=== PATIENT | male | born 1955 | race Caucasian/White ===

== ENCOUNTER 2025-05-20 06:28 | Inpatient (IN) | payer MEDICARE ==
[2025-05-18 14:34] LABS: BASOPHILS % 0.4 % (0.0-1.0); EOSINOPHILS % 1.9 % (0.0-6.0); LYMPHOCYTES % 13.9 % (18.0-39.1); MONOCYTES % 5.7 % (4.4-11.3); NEUTROPHILS % 77.9 % (38.7-80.0); RED CELL DISTRIBUTION WIDTH 13.7 % (11.7-14.4)
[2025-05-18 15:05] LABS: INR 1.07
[2025-05-18 15:11] LABS: EST GLOMERULAR FILTRATION RATE 6.0 ML/MIN (>=60)
[~2025-05-20] VITALS: Ht 175.3 cm; Wt 88.5 kg
[~2025-05-20 06:28] MED LIST: CALCIUM ACETAT667 MG PO; CLONIDINE HCL0.1 MG PO; CRESTOR40 MG PO; HYDRALAZINE HCL25 MG PO; ISOSORBIDE DINI30 MG PO; LASIX40 MG PO; METOPROLOL SUCC50 MG PO; PLAVIX75 MG PO; SENSIPAR30 MG PO; STOOL SOFTENER50 MG
[2025-05-20] MEDS ORDERED: DOCUSATE SODIUM 100 MG CAP PO PRN (07:00)
[2025-05-20] MEDS ORDERED: LIDOCAINE HCL 2% LOCAL INJ 5 ML SDV VIAL INJ ONE (07:26)
[2025-05-20] MEDS ORDERED: SEVOFLURANE INHAL SOLN 250 ML PEN BTL ONE (07:27)
[2025-05-20] MEDS ORDERED: ROCURONIUM BROMIDE 0 ML IV ONE (07:27)
[2025-05-20] MEDS ORDERED: PROPOFOL IV EMULSION 10 MG/ML 20 ML VIAL ONE ×2 (07:27→09:49)
[2025-05-20] MEDS ORDERED: SODIUM CHLORIDE 0.9% 100 ML ONE (07:27)
[2025-05-20] MEDS ORDERED: ACETAMINOPHEN 1000 MG/100 ML 100 ML IV ONE (07:27)
[2025-05-20] MEDS ORDERED: PHENYLEPHRINE HCL 1% 10 MG/ML VIAL ONE (07:27)
[2025-05-20] MEDS ORDERED: FENTANYL CITRATE/PF 100MCG/2 ML INJ ONE (07:27)
[2025-05-20] MEDS ORDERED: ROPIVACAINE/EPI/CLONIDINE/KET 50 ML SYRINGE INJ ONE (08:00)
[2025-05-20] MEDS ORDERED: PROPOFOL IV EMULSION 50 ML IV ONE (08:26)
[2025-05-20] MEDS ORDERED: DEXAMETHASONE SOD PHOS INJ 4 MG/ML SDV ONE (08:46)
[2025-05-20] MEDS ORDERED: SIMETHICONE 80 MG CHEW PO PRN (15:00)
[2025-05-20] MEDS ORDERED: DIPHENHYDRAMINE HCL 25 MG CAP PO PRN (15:00)
[2025-05-20] MEDS ORDERED: LIDOCAINE 4% PATCH TP PRN (15:00)
[2025-05-20] MEDS ORDERED: CHLORASEPTIC SPRAY 177 ML BTL MM PRN (15:00)
[2025-05-20] MEDS ORDERED: POTASSIUM CHLORIDE 20 MEQ TAB CR PO PRN (15:00)
[2025-05-20] MEDS ORDERED: BENZONATATE 100 MG CAP PO PRN (15:00)
[2025-05-20] MEDS ORDERED: DEXTROSE 50% SYRINGE 50 ML IV PRN (15:00)
[2025-05-20] MEDS ORDERED: ALBUTEROL/IPRATROPIUM 3 ML NEB NEB PRN (15:00)
[2025-05-20 16:05] VITALS: BP 185/95; PULSE 62; RESP 20; TEMP 97.3; O2SAT 97
[2025-05-20] MEDS ORDERED: ASPIRIN 325 MG TAB ONE (16:16)
[2025-05-20] MEDS: ASPIRIN 81 MG CHEW TAB PO SCH (16:40)
[2025-05-20] MEDS: METOPROLOL SUCCINATE 50 MG TAB XL PO SCH (16:40)
[2025-05-20] MEDS: HYDRALAZINE HCL 25 MG TAB PO SCH (16:41)
[2025-05-20] MEDS: SODIUM CHLORIDE 0.9% 250ML 250 ML ONE (16:42)
[2025-05-20] MEDS ORDERED: ENOXAPARIN SOD INJ 40 MG/0.4 ML SYR SC SCH (17:00)
[2025-05-20] MEDS: GENTAMICIN SULFATE 15 GM CR TP SCH (19:00)
[2025-05-20] MEDS ORDERED: Morphine 2mg Syringe 2 MG/ML SYR IV PRN (19:45)
[2025-05-20] MEDS ORDERED: TRAMADOL HCL 50 MG TAB PO PRN ×2 (19:45)
[2025-05-20 20:00] VITALS: BP 138/88; PULSE 78; RESP 18; TEMP 97.3; O2SAT 100
[2025-05-20 20:03] VITALS: PULSE 77; RESP 17; O2SAT 98
[2025-05-20] MEDS: TRAMADOL HCL 50 MG TAB PO PRN (20:40)
[2025-05-20] MEDS: MELATONIN 5 MG TABLET PO PRN (20:40)
[2025-05-20] MEDS: HEPARIN SOD (PORCINE) 5,000 UNIT/ML VIAL SC SCH (20:40)
[2025-05-20 21:00] VITALS: BP 138/88; PULSE 77; RESP 17; TEMP 97.3; O2SAT 98
[2025-05-21] VITALS (11 sets, daily range): BP systolic 126–143; BP diastolic 78–92; PULSE 53–83; RESP 17–20; TEMP 97.6–98.8; O2SAT 96–100
[2025-05-21 07:03] LABS: EST GLOMERULAR FILTRATION RATE 6.0 ML/MIN (>=60)
[2025-05-21] MEDS: CALCIUM ACETATE 667 MG GELCAP PO SCH (08:55)
[2025-05-21] MEDS: CRESTOR 10MG PO SCH (08:56)
[2025-05-21] MEDS: CLOPIDOGREL BISULFATE 75 MG TAB PO SCH (08:57)
[2025-05-21] MEDS: PANTOPRAZOLE SOD 40 MG TABEC PO SCH (08:57)
[2025-05-21] MEDS: FUROSEMIDE 40 MG TAB PO SCH (08:57)
[2025-05-21] MEDS: CINACALCET 30 MG TAB PO SCH (08:57)
[2025-05-21] MEDS: CALCIUM GLUC 1 G/50 ML NACL 50 ML IV ONE ×2 (09:00→10:12)
[2025-05-21] MEDS: ONDANSETRON HCL INJ 2MG/ML 2ML 2 MG/ML VIAL IV PRN (11:07)
[2025-05-21] MEDS: ACETAMINOPHEN 325 MG TAB PO PRN (14:51)
[2025-05-21] MEDS ORDERED: HEPARIN SOD (PORCINE) 1000 UNIT/ML SDV IV PRN (15:45)
[2025-05-21] MEDS ORDERED: SODIUM CHLORIDE 0.9% 1000ML 2,000 ML IV PRN (15:45)
[2025-05-21] MEDS: SODIUM CHLORIDE 0.9% 250ML 250 ML IV ONE (18:07)
[2025-05-21] MEDS: EPOETIN ALFA-EPBX 10,000 UNIT/ML VIAL SC SCH (18:07)
[2025-05-21] MEDS: SODIUM CHLORIDE 0.9% 500ML 500 ML ONE (18:34)
[2025-05-21] MEDS: CEFAZOLIN SODIUM 2 GM ONE (18:34)
[2025-05-21] MEDS: CALCIUM CARBONATE 500 MG CHEWABLE TABS PO SCH (21:03)
[2025-05-21] MEDS ORDERED: SODIUM CHLORIDE 0.9% 250ML 250 ML ONE (22:24)
[2025-05-22] VITALS (9 sets, daily range): BP systolic 130–161; BP diastolic 67–104; PULSE 69–87; RESP 18–21; TEMP 97.6–98.3; O2SAT 95–100
[2025-05-22] MEDS: SODIUM CHLORIDE 0.9% 250ML 250 ML IV ONE (00:03)
[2025-05-22] MEDS: HYDRALAZINE HCL 20 MG/ML VIAL IV PRN (00:07)
[2025-05-22 06:54] LABS: BASOPHILS % 0.4 % (0.0-1.0); EOSINOPHILS % 1.2 % (0.0-6.0); LYMPHOCYTES % 17.3 % (18.0-39.1); MONOCYTES % 7.9 % (4.4-11.3); NEUTROPHILS % 72.6 % (38.7-80.0); RED CELL DISTRIBUTION WIDTH 17.0 % (11.7-14.4)
[2025-05-22 07:36] LABS: EST GLOMERULAR FILTRATION RATE 7.0 ML/MIN (>=60)
[2025-05-22] MEDS ORDERED: METOCLOPRAMIDE HCL 10 MG/2ML VIAL IV SCH (18:00)
[2025-05-22] MEDS: METOCLOPRAMIDE HCL 10 MG/2ML VIAL IV SCH (18:43)
[2025-05-23 03:24] VITALS: BP 130/67; PULSE 75; RESP 18; TEMP 97.6; O2SAT 98
[2025-05-23 05:37] LABS: BASOPHILS % 0.4 % (0.0-1.0); EOSINOPHILS % 1.9 % (0.0-6.0); LYMPHOCYTES % 16.3 % (18.0-39.1); MONOCYTES % 7.9 % (4.4-11.3); NEUTROPHILS % 72.7 % (38.7-80.0); RED CELL DISTRIBUTION WIDTH 16.7 % (11.7-14.4)
[2025-05-23 06:04] LABS: EST GLOMERULAR FILTRATION RATE 7.0 ML/MIN (>=60)
[2025-05-23 06:54] VITALS: PULSE 78; RESP 22; O2SAT 95
[2025-05-23 09:23] VITALS: BP 159/86; PULSE 76; RESP 22; TEMP 97.6; O2SAT 95
[2025-05-23 11:45] VITALS: BP 139/87; PULSE 79; RESP 18; TEMP 98.1; O2SAT 100
[2025-05-23 12:16] VITALS: BP 139/87; PULSE 79; RESP 18; TEMP 98.1; O2SAT 100
[2025-05-23] MEDS ORDERED: ASPIRIN CHEW81 MG PO (12:58)
[2025-05-25 05:16] LABS: HEPATITIS B SURFACE AB QUANT <3.5 mIU/mL (Immunity>10); HEPATITIS BE ANTIGEN Negative (Negative)
[2025-05-25 06:20] LABS: HEPATITIS BE ANTIBODY Non Reactive (Negative)
== END 2025-05-23 15:00 | disposition home or self-care (01) | DRG 466 ==
LOC: OR 06:28 → PACU V 11:23 → MED/SURG3 12:00 → OBSVTOIN 05-22 09:20
PROVIDERS: ADMIT Orthopaedic Surgery Adult Reconstructive Orthopaedic Surgery; ATTEND Orthopaedic Surgery Adult Reconstructive Orthopaedic Surgery
PROC: 0SPR0JZ Removal of Synthetic Substitute from Right Hip Joint, Femoral Surface, Open Approach (ICD-10-PCS; 2025-05-20)
PROC: 0SR901Z Replacement of Right Hip Joint with Metal Synthetic Substitute, Open Approach (ICD-10-PCS; principal; 2025-05-20 08:28)
PROC: 30233N1 Transfusion of Nonautologous Red Blood Cells into Peripheral Vein, Percutaneous Approach (ICD-10-PCS; 2025-05-21)
PROC: 3E1M39Z Irrigation of Peritoneal Cavity using Dialysate, Percutaneous Approach (ICD-10-PCS; 2025-05-22)
DX: M16.51 Unilateral post-traumatic osteoarthritis, right hip (principal); N18.6 End stage renal disease; I12.0 Hypertensive chronic kidney disease with stage 5 chronic kidney disease or end stage renal disease; N25.81 Secondary hyperparathyroidism of renal origin; T84.090A Other mechanical complication of internal right hip prosthesis, initial encounter; D62 Acute posthemorrhagic anemia; M87.9 Osteonecrosis, unspecified; E78.5 Hyperlipidemia, unspecified; E83.39 Other disorders of phosphorus metabolism; I25.10 Atherosclerotic heart disease of native coronary artery without angina pectoris; E83.51 Hypocalcemia; Z99.2 Dependence on renal dialysis; Z88.5 Allergy status to narcotic agent; Z79.02 Long term (current) use of antithrombotics/antiplatelets; I25.2 Old myocardial infarction; Z95.5 Presence of coronary angioplasty implant and graft
CPT/HCPCS: 36415; 71046; 72170; 80048; 84100; 84132; 85014; 85018; 85025; 85610; 85730; 86706; 86707; 86850; 86900; 86920; 87350; 93005; 94799; C1713; C1776; G0378; J0360; J0690; J1100; J1644; J2003; J2371; J2405; J2470; J2765; J7040; J7050; P9016